=== PATIENT | female | born 1980 | race Caucasian/White ===

== ENCOUNTER → 2022-12-06 11:10 | Outpatient (BNVA) | payer MEDICARE, MEDICAID, SELFPAY | PROVIDERS: PCP Family Medicine; Visit Provider Internal Medicine Rheumatology | DX: M25.50 Pain in unspecified joint (principal); Z79.899 Other long term (current) drug therapy; M19.90 Unspecified osteoarthritis, unspecified site; M45.6 Ankylosing spondylitis lumbar region; Z11.59 Encounter for screening for other viral diseases; M47.892 Other spondylosis, cervical region; M17.11 Unilateral primary osteoarthritis, right knee; M54.89 Other dorsalgia; M76.61 Achilles tendinitis, right leg; M76.62 Achilles tendinitis, left leg; E06.3 Autoimmune thyroiditis; E03.8 Other specified hypothyroidism; Z11.1 Encounter for screening for respiratory tuberculosis; Z98.84 Bariatric surgery status | CPT/HCPCS: 36415; 72040; 72100; 72202; 73130; 73562; 73630; 80076; 82565; 85025; 85651; 86140; 86200; 86480; 86704; 86803; 86812; 87340; 99204 ==

== ENCOUNTER 2023-01-27 09:02 | Emergency (ER) | payer MEDICARE, MEDICAID, SELFPAY ==
[2023-01-27 09:07] VITALS: BP 117/80; PULSE 84; RESP 16; TEMP 36.5; O2SAT 100; BMI 39.3
--- NOTE | 2023-01-27 09:26 | ED_ITS ---
Documented by User: VIPIN Grace 01/27/23 14:52 HPI - Abdominal Pain General: Chief Complaint: Abdominal Pain Stated Complaint: right abd pain Time Seen by Provider: 01/27/23 09:15 History of Present Illness: Patient is a 43-year-old female who comes to the ED with abdominal pain. Patient has a past surgical history of cholecystectomy and hysterectomy. Symptoms started approximately 3 days ago. Abdominal pain was initially in the periumbilical region of abdomen and over the past 24 hours pain has moved to the right lower quadrant of the abdomen. She rates the pain currently a 7 out of 10 and describes it as a constant aching pain with some moments of sharp stabbing pain as well. Endorses having nausea and decreased appetite over the past c ouple days. This morning she tried to eat some breakfast and immediately threw it up. Denies any fevers, chest pain, shortness of breath, bladder or bowel symptoms. Associated Symptoms: Reports nausea and vomiting; Denies chills, constipation, diarrhea, dysuria, fever(s), hematochezia and hematuria Review of Systems Const: Denies: fever(s), chills or fatigue Eyes: Denies: change in vision or eye discomfort ENMT: Denies: throat pain, odynophagia, nasal discharge or nasal congestion Card: Denies: chest pain, palpitations, edema, swelling of feet/ankles, dyspnea on exertion or orthopnea Resp: Denies: dyspnea, productive cough or non-productive cough GI: Reports: abdominal pain, nausea and vomiting; Denies: diarrhea, constipation or hematochezia : Denies: flank pain, dysuria or hematuria Musc: Denies: neck pain, back pain or extremity swelling Skin/Breast: Denies: rash or new lesions Neuro: Denies: headache(s), numbness in extremities or weakness in extremities PFS ED PFSH: Medical History (Updated 01/27/23 @ 12:27 by Fred Cohn DO) Achilles tendinitis of both lower extremities Benign tumor of pituitary gland Enlarged heart GERD (gastroesophageal reflux disease) 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 Inflammatory back pain Migraines, neuralgic Ovarian cyst Polyarthralgia TIA (transient ischemic attack) Surgical History (Updated 12/06/22 @ 10:01 by Sameer Bettencourt MD) H/O gastric bypass H/O of anterior colporrhaphy with posterior H/O right heart catheterization History of bilateral tubal ligation History of cholecystectomy History of hysterectomy History of laparoscopic cholecystectomy x4 for ovarian cysts History of thyroidectomy Family History (Updated 12/06/22 @ 09:46 by Seble Schaffer LPN) Other Cancer Diabetes Family history of premature coronary artery disease Hypertension Rheumatoid arthritis Stroke Denies family history of Lupus Lung disease Social History (Updated 12/06/22 @ 09:23 by Seble Schaffer LPN) Smoking and tobacco status: former smoker Alcohol intake: never Physical Exam Const: COMMON NORMALS: patient oriented x3 and alert GENERAL APPEARANCE: cooperative HENMT: COMMON NORMALS: normocephalic HEAD & SCALP: normocephalic MOUTH: Normal oral and palatal mucosa present THROAT: posterior oropharynx normal and uvula midline Neck/C-Spine: COMMON NORMALS: supple GENERAL: Yes normal visual inspection Resp: COMMON NORMALS: normal respiratory effort, No retractions, No use of accessory muscles and clear to auscultation bilaterally AUSCULTATION: clear to auscultation bilaterally Cardio: COMMON NORMALS: regular rate, regular rhythm, S1 normal heart sound present, S2 normal heart sound present, No gallops present (Cardio), No clicks present (Cardio), No murmurs present (Cardio) and Peripheral pulses 2+ th roughout RATE: regular rate RHYTHM: regular rhythm HEART SOUNDS: S1 normal heart sound present and S2 normal heart sound present PERIPHERAL PULSES: Peripheral pulses 2+ throughout GI: COMMON NORMALS: Normal to inspection, nondistended, normoactive bowel sounds present, Soft to palpation and no masses PALPATION: Yes Soft to palpation and Yes Tenderness to palpation present (GI) Details: RLQ : COMMON NORMALS: Yes no CVA tenderness BLADDER/KIDNEY EXAM: Yes no CVA tenderness Back/Pelvis: COMMON NORMALS: no CVA tenderness Extremity: COMMON NORMALS: normal to inspection Neuro: COMMON NORMALS: patient oriented x3 SENSORIUM/ORIENTATION: Yes alert GAIT: Yes Normal gait present Skin: GENERAL SKIN EXAM: dry skin Course Vital Signs: Vital signs: Vital Signs Temperature 97.7 F 01/27/23 09:07 Pulse Rate 69 01/27/23 12:04 Respiratory Rate 16 01/27/23 12:04 Blood Pressure 143/82 01/27/23 12:04 Pulse Oximetry 93 01/27/23 12:04 Oxygen Delivery Me thod Room Air 01/27/23 12:04 MDM - Abdominal Pain Lab Data 01/27/23 09:56 01/27/23 09:56 Labs/Radiology: Radiology Impressions Abdomen/Pelvis CT 01/27/23 09:26 IMPRESSION: 1. Enlarged RIGHT hepatic lobe diffuse fatty infiltration liver. 2. Appendix is difficult to visualize but no evidence of acute appendicitis. 3. No hydronephrosis in either kidney. 4. Prior gastric bypass. Prior hysterectomy and cholecystectomy. Prior tubal ligation. 5. A few sigmoid diverticuli. No evidence of acute diverticulitis. 6. Patchy nodular opacity RIGHT lower lobe medially measuring 9 mm. Recommend [address] follow-up. 7. No other suspicious findings. Laboratory Results WBC 9.5 10^3/uL (4.0-10.0) 01/27/23 09:56 RBC 5.30 10^6/uL (4.1-5.3) 01/27/23 09:56 Hgb 15.2 g/dL (11.5-15.3) 01/27/23 09:56 Hct 47.6 % (37.0-47.0) H 01/27/23 09:56 MCV 89.8 fl (81-99) 01/27/23 09:56 MCH 28.7 pg (28.0-34.0) 01/27/23 09:56 MCHC 31.9 g/dL (30.0-36.0) 01/27/23 09:56 RDW 13.8 % (12.1-15.1) 01/27/23 09:56 Plt Count 337 10^3/cmm (130-400) 01/27/23 09:56 MPV 9.5 fL (7.4-10.4) 01/27/23 09:56 Neut % (Auto) 67.7 % 01/27/23 09:56 Lymph % (Auto) 22.4 % 01/27/23 09:56 [place] % (Auto) 7.4 % 01/27/23 09:56 Eos % (Auto) 1.6 % 01/27/23 09:56 Baso % (Auto) 0.6 % 01/27/23 09:56 Neut # (Auto) 6.41 10^3/uL (1.8-7.7) 01/27/23 09:56 Lymph # (Auto) 2.1 10^3/uL (0.8-4.8) 01/27/23 09:56 [place] # (Auto) 0.7 10^3/uL (0.2-0.9) 01/27/23 09:56 Eos # (Auto) 0.2 10^3/uL (0.0-0.8) 01/27/23 09:56 Baso # (Auto) 0.1 10^3/uL (0.0-0.1) 01/27/23 09:56 Nucleated RBC % (auto) 0 % 01/27/23 09:56 Nucleated RBCs # 0.0 /100WBC 01/27/23 09:56 Sodium 142 mmol/L (136-145) 01/27/23 09:56 Potassium 3.5 mmol/L (3.5-5.1) 01/27/23 09:56 Chloride 104 mmol/L (98-107) 01/27/23 09:56 Carbon Dioxide 27 mmol/L (22-29) 01/27/23 09:56 Anion Gap 14.5 (5-19) 01/27/23 09:56 BUN 11 mg/dL (6-20) 01/27/23 09:56 Creatinine 0.6 mg/dL (0.5-0.9) 01/27/23 09:56 GFR Calculation 110.2 mL/min (90-130) 01/27/23 09:56 Glucose 74 mg/dL (65-115) 01/27/23 09:56 Calculated Osmolality 292 mOsm/kg (285-295) 01/27/23 09:56 Calcium 9.1 mg/dL (8.5-10.5) 01/27/23 09:56 Total Bilirubin 0.5 mg/dL (0.15-1.2) 01/27/23 09:56 AST 14 U/L (0-32) 01/27/23 09:56 ALT 11 U/L (0-33) 01/27/23 09:56 Alkaline Phosphatase 63 U/L (35-105) 01/27/23 09:56 Total Protein 7.1 g/dL (6.6-8.7) 01/27/23 09:56 Albumin 4.3 g/dL (3.5-5.2) 01/27/23 09:56 Globulin 2.8 g/dL (1.3-4.6) 01/27/23 09:56 Lipase 31 U/L (13-60) 01/27/23 09:56 Urine Color Yellow (Yellow) 01/27/23 09:42 Urine Appearance Hazy (CLEAR) A 01/27/23 09:42 Urine pH 7 (5-7) 01/27/23 09:42 Ur Specific [place]anan 1.015 (1.005-1.030) 01/27/23 09:42 Urine Protein Neg (Negative) 01/27/23 09:42 Urine Glucose (UA) Norm (Normal) 01/27/23 09:42 Urine Ketones Negative (Negative) 01/27/23 09:42 Urine Blood Neg (Negative) 01/27/23 09:42 Urine Nitrate Negative (Negative) 01/27/23 09:42 Urine Bilirubin Neg (Negative) 01/27/23 09:42 Urine Urobilinogen Norm mg/dL (Negative) 01/27/23 09:42 Ur Leukocyte Esterase Negative (Negative) 01/27/23 09:42 Urine RBC 0-4 /hpf (0-2) H 01/27/23 09:42 Urine WBC 0-4 /hpf (0-5) H 01/27/23 09:42 Ur Squamous Epith Cells 10-15 /hpf (0-5) H 01/27/23 09:42 Amorphous Sediment Not Reportable 01/27/23 09:42 Urine Bacteria Trace /hpf (NONE) 01/27/23 09:42 Urine Mucus Trace /hpf 01/27/23 09:42 Discharge Plan Discharge Patient Disposition: Home Clinical Impression: Right sided abdominal pain Condition: Stable Prescriptions: New hydrocodone-acetaminophen 5-325 mg tablet 1 tab PO Q6H PRN (Reason: pain) Qty: 10 0RF ondansetron HCl 4 mg tablet 4 mg PO Q6H PRN (Reason: nausea and vomiting) Qty: 20 0RF No Action [place] 81 mg capsule 81 mg PO QAM hydrochlorothiazide 25 mg tablet 25 mg PO QAM levothyroxine [Tirosint] 150 mcg capsule 150 mcg PO QAM omeprazole magnesium [Prilosec OTC] 20 mg tablet,delayed release (DR/EC) 20 mg PO QAM prednisone 20 mg tablet See Rx Instructions PO .COMPLEX PRN (Reason: joint pain flare) Qty: 30 0RF Rx Instructions: take 2 tab daily for 7 days as needed for arthritis flare as needed phentermine 37.5 mg tablet 37.5 mg PO QAM bupropion HCl 150 mg tablet extended release 24 hr 150 mg PO QAM sulfasalazine 500 mg tablet 500 mg PO QAM Rx Instructions: give with food (meal/snack) Discharge Orders: Discharge ED (Routine); Ordered 01/27/23 Ordered By: Fred Cohn Referrals: Jean Chandler DO [Primary Care Provider] - Discharge Diet: Clear Liquid Discharge Activity: Increase activity as tolerated Patient Instructions: Abdominal Pain (ED), Opioid Safety, Pain Management Activity Restrictions/Additional Instructions: You are seen today for abdominal pain your labs and CT of the abdomen were negative. Recommend clear liquid diet for 24 to 48 hours and advance as tolerated you can use Zofran or hydrocodone as needed for pain return if you have worsening or changes symptoms Sign Out Sign Out Data: Patient Sign Out occurred on 01/27/23 at 09:57. Patient's care was discussed, and care was transferred from to Fred Cohn DO. Coding Level of Care Code ED Program Professional for Chg Fwd Documented by User: Fred Cohn DO 01/27/23 13:55 HPI - Abdominal Pain 2 General: Chief Complaint: Abdominal Pain Stated Complaint: right abd pain Time Seen by Provider: 01/27/23 09:15 History of Present Illness: Patient is a 43-year-old female who comes to the ED with abdominal pain. Patient has a past surgical history of cholecystectomy, gastric sleeve and hysterectomy. Symptoms started approximately 3 days ago. Abdominal pain was initially in the periumbilical region of abdomen and over the past 24 hours pain has moved to the right lower quadrant of the abdomen. She rates the pain c urrently a 7 out of 10 and describes it as a constant aching pain with some moments of sharp stabbing pain as well. Endorses having nausea and decreased appetite over the past couple days. This morning she tried to eat some breakfast and immediately threw it up. Denies any fevers, chest pain, shortness of breath, bladder or bowel symptoms. 43-year-old female who presents emergency room with abdominal pain. Previous history of cholecystectomy gastric sleeve hysterectomy symptoms began about 3 to 4 days ago she has poor appetite she has been very nauseous. Pain migrated to the right lower quadrant. Anytime she eats or drinks it makes it worse with motion or stepping or even riding in the car over on the head of bu it seemed to worsen significantly. She denies any diarrhea but has been very nauseous and threw up once this morning denies any hematemesis or coffee-ground emesis. 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 Inflammatory back pain Migraines, neuralgic Ovarian cyst Polyarthralgia TIA (transient ischemic attack) Surgical History (Updated 12/06/22 @ 10:01 by Sameer Bettencourt MD) H/O gastric bypass H/O of anterior colporrhaphy with posterior H/O right heart catheterization History of bilateral tubal ligation History of cholecystectomy History of hysterectomy History of laparoscopic cholecystectomy x4 for ovarian cysts History of thyroidectomy Family History (Updated 12/06/22 @ 09:46 by Seble Schaffer LPN) Other Cancer Diabetes Family history of premature coronary artery disease Hypertension Rheumatoid arthritis Stroke Denies family history of Lupus Lung disease Social History (Updated 12/06/22 @ 09:23 by Seble Schaffer LPN) Smoking and tobacco status: former smoker Alcohol intake: never Physical Exam Const: GENERAL APPEARANCE: cooperative and comfortable ORIENTATION/CONSCIOUSNESS: Yes awake, Yes oriented to person, Yes oriented to place and Yes oriented to time HENMT: COMMON NORMALS: normocephalic, atraumatic and hearing grossly normal bilaterally HEAD & SCALP: normocephalic and atraumatic Resp: COMMON NORMALS: normal respiratory effort, No retractions, No use of accessory muscles and clear to auscultation bilaterally AUSCULTATION: clear to auscultation bilaterally Cardio: COMMON NORMALS: regular rate, regular rhythm and No murmurs present ( Cardio) RATE: regular rate RHYTHM: regular rhythm GI: COMMON NORMALS: No hepatosplenomegaly present AUSCULTATION: Yes normoactive bowel sounds PALPATION: Yes Tenderness to palpation present (GI) Details: RLQ, No Guarding due to palpation present (GI) and Yes No hepatosplenomegaly present Extremity: COMMON NORMALS: normal to inspection, capillary refill normal, no clubbing, cyanosis or edema, no calf tenderness and no pedal edema Neuro: SENSORIUM/ORIENTATION: Yes oriented to person, Yes oriented to place and Yes oriented to time Skin: COMMON NORMALS: no rashes or lesions noted GENERAL SKIN EXAM: no rashes or lesions noted Course Vital Signs: Vital signs: Vital Signs Temperature 97.7 F 01/27/23 09:07 Pulse Rate 69 01/27/23 12:04 Respiratory Rate 16 01/27/23 12:04 Blood Pressure 143/82 01/27/23 12:04 Pulse Oximetry 93 01/27/23 12:04 Oxygen Delivery Me thod Room Air 01/27/23 12:04 MDM - Abdominal Pain Medical Decision Making Labs and imaging reviewed no leukocytosis CT of the abdomen did not show any acute pathology no appendicitis. UA negative. Discharge patient home with antiemetics pain medications clear liquid diet 24 to 48 hours advance as tolerated any worsening change symptoms return to the emergency room reviewed all findings with her. Medical Records I reviewed the patient's medical records. Lab Data I reviewed the patient's lab results. 01/27/23 09:56 01/27/23 09:56 Labs/Radiology: Radiology Impressions Abdomen/Pelvis CT 01/27/23 09:26 IMPRESSION: 1. Enlarged RIGHT hepatic lobe diffuse fatty infiltration liver. 2. Appendix is difficult to visualize but no evidence of acute appendicitis. 3. No hydronephrosis in either kidney. 4. Prior gastric bypass. Prior hysterectomy and cholecystectomy. Prior tubal ligation. 5. A few sigmoid diverticuli. No evidence of acute diverticulitis. 6. Patchy nodular opacity RIGHT lower lobe medially measuring 9 mm. Recommend [address] follow-up. 7. No other suspicious findings. Laboratory Results WBC 9.5 10^3/uL (4.0-10.0) 01/27/23 09:56 RBC 5.30 10^6/uL (4.1-5.3) 01/27/23 09:56 Hgb 15.2 g/dL (11.5-15.3) 01/27/23 09:56 Hct 47.6 % (37.0-47.0) H 01/27/23 09:56 MCV 89.8 fl (81-99) 01/27/23 09:56 MCH 28.7 pg (28.0-34.0) 01/27/23 09:56 MCHC 31.9 g/dL (30.0-36.0) 01/27/23 09:56 RDW 13.8 % (12.1-15.1) 01/27/23 09:56 Plt Count 337 10^3/cmm (130-400) 01/27/23 09:56 MPV 9.5 fL (7.4-10.4) 01/27/23 09:56 Neut % (Auto) 67.7 % 01/27/23 09:56 Lymph % (Auto) 22.4 % 01/27/23 09:56 [place] % (Auto) 7.4 % 01/27/23 09:56 Eos % (Auto) 1.6 % 01/27/23 09:56 Baso % (Auto) 0.6 % 01/27/23 09:56 Neut # (Auto) 6.41 10^3/uL (1.8-7.7) 01/27/23 09:56 Lymph # (Auto) 2.1 10^3/uL (0.8-4.8) 01/27/23 09:56 [place] # (Auto) 0.7 10^3/uL (0.2-0.9) 01/27/23 09:56 Eos # (Auto) 0.2 10^3/uL (0.0-0.8) 01/27/23 09:56 Baso # (Auto) 0.1 10^3/uL (0.0-0.1) 01/27/23 09:56 Nucleated RBC % (auto) 0 % 01/27/23 09:56 Nucleated RBCs # 0.0 /100WBC 01/27/23 09:56 Sodium 142 mmol/L (136-145) 01/27/23 09:56 Potassium 3.5 mmol/L (3.5-5.1) 01/27/23 09:56 Chloride 104 mmol/L (98-107) 01/27/23 09:56 Carbon Dioxide 27 mmol/L (22-29) 01/27/23 09:56 Anion Gap 14.5 (5-19) 01/27/23 09:56 BUN 11 mg/dL (6-20) 01/27/23 09:56 Creatinine 0.6 mg/dL (0.5-0.9) 01/27/23 09:56 GFR Calculation 110.2 mL/min (90-130) 01/27/23 09:56 Glucose 74 mg/dL (65-115) 01/27/23 09:56 Calculated Osmolality 292 mOsm/kg (285-295) 01/27/23 09:56 Calcium 9.1 mg/dL (8.5-10.5) 01/27/23 09:56 Total Bilirubin 0.5 mg/dL (0.15-1.2) 01/27/23 09:56 AST 14 U/L (0-32) 01/27/23 09:56 ALT 11 U/L (0-33) 01/27/23 09:56 Alkaline Phosphatase 63 U/L (35-105) 01/27/23 09:56 Total Protein 7.1 g/dL (6.6-8.7) 01/27/23 09:56 Albumin 4.3 g/dL (3.5-5.2) 01/27/23 09:56 Globulin 2.8 g/dL (1.3-4.6) 01/27/23 09:56 Lipase 31 U/L (13-60) 01/27/23 09:56 Urine Color Yellow (Yellow) 01/27/23 09:42 Urine Appearance Hazy (CLEAR) A 01/27/23 09:42 Urine pH 7 (5-7) 01/27/23 09:42 Ur Specific [place] 1.015 (1.005-1.030) 01/27/23 09:42 Urine Protein Neg (Negative) 01/27/23 09:42 Urine Glucose (UA) Norm (Normal) 01/27/23 09:42 Urine Ketones Negative (Negative) 01/27/23 09:42 Urine Blood Neg (Negative) 01/27/23 09:42 Urine Nitrate Negative (Negative) 01/27/23 09:42 Urine Bilirubin Neg (Negative) 01/27/23 09:42 Urine Urobilinogen Norm mg/dL (Negative) 01/27/23 09:42 Ur Leukocyte Esterase Negative (Negative) 01/27/23 09:42 Urine RBC 0-4 /hpf (0-2) H 01/27/23 09:42 Urine WBC 0-4 /hpf (0-5) H 01/27/23 09:42 Ur Squamous Epith Cells 10-15 /hpf (0-5) H 01/27/23 09:42 Amorphous Sediment Not Reportable 01/27/23 09:42 Urine Bacteria Trace /hpf (NONE) 01/27/23 09:42 Urine Mucus Trace /hpf 01/27/23 09:42 Discharge Plan Discharge Patient Disposition: Home Clinical Impression: Right sided abdominal pain Condition: Stable Prescriptions: New hydrocodone-acetaminophen 5-325 mg tablet 1 tab PO Q6H PRN (Reason: pain) Qty: 10 0RF ondansetron HCl 4 mg tablet 4 mg PO Q6H PRN (Reason: nausea and vomiting) Qty: 20 0RF No Action [place] 81 mg capsule 81 mg PO QAM hydrochlorothiazide 25 mg tablet 25 mg PO QAM levothyroxine [Tirosint] 150 mcg capsule 150 mcg PO QAM omeprazole magnesium [Prilosec OTC] 20 mg tablet,delayed release (DR/EC) 20 mg PO QAM prednisone 20 mg tablet See Rx Instructions PO .COMPLEX PRN (Reason: joint pain flare) Qty: 30 0RF Rx Instructions: take 2 tab daily for 7 days as needed for arthritis flare as needed phentermine 37.5 mg tablet 37.5 mg PO QAM bupropion HCl 150 mg tablet extended release 24 hr 150 mg PO QAM sulfasalazine 500 mg tablet 500 mg PO QAM Rx Instructions: give with food (meal/snack) Discharge Orders: Discharge ED (Routine); Ordered 01/27/23 Ordered By: Fred Cohn Referrals: Jean Chandler DO [Primary Care Provider] - Discharge Diet: Clear Liquid Discharge Activity: Increase activity as tolerated Patient Instructions: Abdominal Pain (ED), Opioid Safety, Pain Management Activity Restrictions/Additional Instructions: You are seen today for abdominal pain your labs and CT of the abdomen were negative. Recommend clear liquid diet for 24 to 48 hours and advance as tolerated you can use Zofran or hydrocodone as needed for pain return if you have worsening or changes symptoms Sign Out Sign Out Data: Patient Sign Out occurred on 01/27/23 at 09:57. Patient's care was discussed, and care was transferred from to Fred Cohn DO. Coding Level of Care Code ED Program Professional for Wade Quiñones
--- NOTE | 2023-01-27 09:26 | CT_ITS ---
WS: [id number] CT ABDOMEN PELVIS TECHNIQUE: Contrast-enhanced CT of the abdomen and pelvis with coronal and sagittal reformatted image s. CLINICAL INFORMATION: RLQ abdominal tenderness, n/v COMPARISON: None. DLP: 877.[address] scans at [facility] use at least one of these dose optimization techniques: automated e xposure control; mA and/or kV adjustment per patient size (includes targeted exams where dose is matc hed to clinical indication); or iterative reconstruction. FINDINGS: Prior hysterectomy and cholecystectomy. Prior gastric bypass. Tubal ligation clips. Appendix is not w ell visualized but no evidence of acute appendicitis. No fluid collections the RIGHT lower quadrant. Normal cecum. A few sigmoid diverticuli. No evidence of acute diverticulitis.Normal bladder. Lung bases are well ae rated. Patchy nodular opacity RIGHT lower lobe medially measuring 9 mm. Large RIGHT hepatic lobe. Dif fuse fatty infiltration liver. Normal portal vein and splenic vein. Normal pancreas. Normal spleen. Adrenal glands are normal. Normal renal parenchymal enhancement. No hydronephrosis. Celiac and SMA ar e patent. Normal caliber abdominal aorta. Chronic compression with anterior wedging at T12. CT/CT abdomen pelvis w con* [id number] IMPRESSION: 1. Enlarged RIGHT hepatic lobe diffuse fatty infiltration liver. 2. Appendix is difficult to visualize but no evidence of acute appendicitis. 3. No hydronephrosis in either kidney. 4. Prior gastric bypass. Prior hysterectomy and cholecystectomy. Prior tubal l igation. 5. A few sigmoid diverticuli. No evidence of acute diverticulitis. 6. Patchy nodular opacity RIGHT lower lobe medially measuring 9 mm. Recommend [address] follow-up. 7. No other suspicious findings.
[2023-01-27] MEDS: sodium chloride 0.9% 1,000 ML 999 ML IV (09:53)
--- NOTE | 2023-01-27 09:53 | PC.PHAR ---
pt states she takes care of her own medications-pt states she takes sulfasalazine 500mg qam ext shows last filled 12/27/22 30d/s 500mg bid-pt states she uses medical marijuana-notes are made in the pharmacy comments
[2023-01-27] MEDS: morphine 4 mg/mL SDV 1 mL IVP (09:55)
[2023-01-27] MEDS: ondansetron 2 mg/ML SDV 2 mL 4 MG IVP (09:55)
[2023-01-27 09:59] VITALS: BP 157/98; PULSE 73; RESP 16; O2SAT 100
[2023-01-27 10:18] LABS: Basophils # 0.1 10^3/uL (0.0-0.1); Basophils % 0.6 %; Eosinophils # 0.2 10^3/uL (0.0-0.8); Eosinophils % 1.6 %; Hematocrit 47.6 % (37.0-47.0); Hemoglobin 15.2 g/dL (11.5-15.3); Lymphocytes # 2.1 10^3/uL (0.8-4.8); Lymphocytes % 22.4 %; Mean Corpuscular HGB Conc 31.9 g/dL (30.0-36.0); Mean Corpuscular Hemoglobin 28.7 pg (28.0-34.0); Mean Corpuscular Volume 89.8 fl (81-99); Mean Platelet Volume 9.5 fL (7.4-10.4); Monocytes # 0.7 10^3/uL (0.2-0.9); Monocytes % 7.4 %; Neutrophils # 6.41 10^3/uL (1.8-7.7); Neutrophils % 67.7 %; Nucleated Red Blood Cells % 0 %; Platelet Count 337 10^3/cmm (130-400); Red Cell Distribution Width 13.8 % (12.1-15.1); White Blood Count 9.5 10^3/uL (4.0-10.0)
[2023-01-27] MEDS: iohexol 350 mg/mL 500 mL Btl (per mL) IV (10:20)
[2023-01-27 10:28] LABS: Alanine Aminotransferase 11 U/L (0-33); Albumin Level 4.3 g/dL (3.5-5.2); Alkaline Phosphatase 63 U/L (35-105); Anion Gap 14.5 (5-19); Aspartate Amino Transferase 14 U/L (0-32); Blood Urea Nitrogen 11 mg/dL (6-20); Calcium 9.1 mg/dL (8.5-10.5); Carbon Dioxide 27 mmol/L (22-29); Chloride 104 mmol/L (98-107); Creatinine Clr Calc Pharmacy 139.7732; Globulin 2.8 g/dL (1.3-4.6); Glomerular Filtration Rate 110.2 mL/min (90-130); Glucose 74 mg/dL (65-115); Lipase 31 U/L (13-60); Osmolality Calculated 292 mOsm/kg (285-295); Potassium 3.5 mmol/L (3.5-5.1); Sodium 142 mmol/L (136-145); Total Bilirubin 0.5 mg/dL (0.15-1.2); Total Protein 7.1 g/dL (6.6-8.7)
[2023-01-27 10:54] LABS: Add Urine Microscopic? YES; Bilirubin Urine Neg (Negative); Blood Urine Neg (Negative); Glucose Urine UA Norm (Normal); Ketones Urine Negative (Negative); Leukocyte Esterase Urine Negative (Negative); Nitrate Urine Negative (Negative); Protein Urine Neg (Negative); Specific Gravity, Urine 1.015 (1.005-1.030); Urine Appearance Hazy (CLEAR); Urine Color Yellow (Yellow); Urobilinogen Urine Norm (Negative); pH Urine 7 (5-7)
[2023-01-27 10:55] LABS: Add Urine Culture? No; Bacteria Urine TRACE /hpf; Mucus Urine TRACE /hpf; RBC Urine 0-4 /hpf (0-2); WBC Urine 0-4 /hpf (0-5)
[2023-01-27 11:02] VITALS: BP 141/83; PULSE 82; RESP 15; O2SAT 97
[2023-01-27 12:04] VITALS: BP 143/82; PULSE 69; RESP 16; O2SAT 93
== END 2023-01-27 12:59 | disposition home or self-care (01) ==
PROVIDERS: Physician Assistant; Emergency Provider Family Medicine; PCP Family Medicine
DX: R10.9 Unspecified abdominal pain (principal)
CPT/HCPCS: 74177; 80053; 81001; 83690; 85025; 96361; 96374; 96375; 99285; J2270; J2405; J7030; Q9967

== ENCOUNTER → 2023-01-30 13:10 | Outpatient (BNVA) | payer MEDICARE, MEDICAID, SELFPAY | PROVIDERS: PCP Family Medicine; Visit Provider Internal Medicine Rheumatology | DX: M25.50 Pain in unspecified joint (principal); M54.89 Other dorsalgia; M76.61 Achilles tendinitis, right leg; M76.62 Achilles tendinitis, left leg; E03.8 Other specified hypothyroidism; E06.3 Autoimmune thyroiditis; Z79.899 Other long term (current) drug therapy; R76.8 Other specified abnormal immunological findings in serum | CPT/HCPCS: 99214 ==

== ENCOUNTER → 2023-06-19 10:20 | Outpatient (BNVA) | payer MEDICARE, MEDICAID, SELFPAY | PROVIDERS: PCP Family Medicine; Visit Provider Internal Medicine Rheumatology | DX: Z79.899 Other long term (current) drug therapy (principal); E03.8 Other specified hypothyroidism; E06.3 Autoimmune thyroiditis; M54.89 Other dorsalgia; M19.90 Unspecified osteoarthritis, unspecified site; R76.8 Other specified abnormal immunological findings in serum; M06.041 Rheumatoid arthritis without rheumatoid factor, right hand; M06.042 Rheumatoid arthritis without rheumatoid factor, left hand | CPT/HCPCS: 99214 ==

== ENCOUNTER → 2023-06-22 07:51 | Outpatient (BNVA) | payer MEDICARE, MEDICAID, SELFPAY | PROVIDERS: PCP Family Medicine; Visit Provider Obstetrics & Gynecology | DX: N81.10 Cystocele, unspecified (principal); Z90.710 Acquired absence of both cervix and uterus | CPT/HCPCS: 76830 ==

== ENCOUNTER → 2023-09-11 10:49 | Outpatient (BNVA) | payer MEDICARE, MEDICAID, SELFPAY | PROVIDERS: PCP Family Medicine; Visit Provider Internal Medicine Rheumatology | DX: M54.2 Cervicalgia (principal); M06.041 Rheumatoid arthritis without rheumatoid factor, right hand; M06.042 Rheumatoid arthritis without rheumatoid factor, left hand; Z79.899 Other long term (current) drug therapy; M19.90 Unspecified osteoarthritis, unspecified site; R76.8 Other specified abnormal immunological findings in serum | CPT/HCPCS: 36415; 80076; 82565; 85025; 86140; 99204 ==

== ENCOUNTER 2024-01-02 09:06 | Day surgery (SDC) | payer OTHER, MEDICAID, SELFPAY ==
--- NOTE | 2023-12-29 09:01 | P.ANESASSM_ITS ---
Pre-Anesthetic Assessment Height/Weight: Height 1.6 m Preop Diagnosis: pelvic pain Operation Date: 01/02/24 07:00 Proposed Procedures p Diagnostic laparoscopy 49370 R10.2, G89.29](Not Applicable) - Deondre Hare MD Familial anesthetic complications: took awhile to wake up Social No alcohol and No tobacco marijuana Exam alert, oriented x 3, clear to auscultation bilaterally and regular rate & rhythm Airway Mallampati: Class III Dentition: other (bridges) GI Gastroesophageal Reflux Disease Metabolic Thyroid Disease [facility] [place] Fibromyalgia Anesthetic Plan ASA status: 3 Anesthesia: General Risk of > 500 ml blood loss (7ml/kg in children): No Medications/Allergies Home Medications Medication Instructions Recorded Confirmed Last Taken Type hydrochlorothiazide 25 mg tablet 25 mg PO QAM PRN Edema 12/05/22 12/29/23 12/22/23 History levothyroxine 150 mcg capsule 150 mcg PO QAM 12/05/22 12/29/23 12/22/23 History (Tirosint) bupropion HCl 150 mg 24 hr tablet, 150 mg PO QAM 01/27/23 12/29/23 12/29/23 History extended release phentermine 37.5 mg tablet 37.5 mg PO QAM 01/27/23 12/29/23 12/18/23 History fluticasone propionate 50 1 spray intranasal DAILY PRN 07/28/23 12/29/23 12/22/23 Rx mcg/actuation nasal allergy symptoms #16 grams spray,suspension folic acid 1 mg tablet 1 mg PO DAILY #30 tabs 09/11/23 12/29/23 12/22/23 Rx gabapentin 300 mg capsule 300 mg PO .HS #30 caps 09/11/23 12/29/23 12/22/23 Rx methotrexate sodium 25 mg/mL 25 mg SUBCUT .Q7days #10 mL 09/11/23 12/29/23 12/22/23 Rx injection solution prednisone 10 mg tablet See Rx Instructions PO DAILY joint 09/11/23 12/29/23 11/30/23 Rx pain #90 tabs syringe with needle 1 mL 25 gauge #50 ea 09/12/23 12/25/23 Unknown Rx x 5/8 (Monoject TB Safety Syringe) ibuprofen 800 mg tablet 800 mg PO TID PRN Pain 10/27/23 12/29/23 12/22/23 History omeprazole magnesium 20 mg 20 mg PO QAM PRN reflux 10/27/23 12/29/23 12/08/23 History tablet,delayed release (Prilosec OTC) Allergies Allergy/AdvReac Type Severity Reaction Status Date / Time prochlorperazine Allergy ALGY-Rash Verified 12/25/23 07:52 [From Compazine] sulfasalazine AdvReac Intermediate nausea, Verified 12/25/23 07:52 gastric and anxiety [facility] Anesthesia Medical History Seronegative rheumatoid arthritis of both hands Positive BENOIT (antinuclear antibody) High risk medication use Achilles tendinitis of both lower extremities Inflammatory back pain Polyarthralgia 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 Benign tumor of pituitary gland Enlarged heart Migraines, neuralgic TIA (transient ischemic attack) GERD (gastroesophageal reflux disease) Ovarian cyst Surgical History History of thyroidectomy History of hysterectomy History of bilateral tubal ligation H/O of anterior colporrhaphy with posterior History of laparoscopic cholecystectomy x4 for ovarian cysts History of cholecystectomy H/O gastric bypass H/O right heart catheterization Family History Other Cancer Diabetes Family history of premature coronary artery disease Hypertension Rheumatoid arthritis Stroke Denies family history of Lupus Lung disease Social History Smoking and tobacco/nicotine status: former use of tobacco/nicotine Alcohol intake: never Data Anesthesia Cardiac Studies: No Data to Display
[2023-12-29 12:18] LABS: Add Urine Microscopic? NO; Charge for UA Resulting for Rev
[2023-12-29 12:22] LABS: Basophils % 0.5 %; Eosinophils # 0.2 10^3/uL (0.0-0.8); Eosinophils % 2.5 %; Hematocrit 43.1 % (36-47); Lymphocytes # 2.1 10^3/uL (0.8-4.8); Mean Corpuscular HGB Conc 31.8 g/dL (30-55); Mean Corpuscular Hemoglobin 28.9 pg (27-33); Mean Corpuscular Volume 90.9 fl (85-98); Mean Platelet Volume 10.4 fL (7.4-10.4); Monocytes # 0.7 10^3/uL (0.2-0.9); Neutrophils # 4.31 10^3/uL (1.8-7.7); Neutrophils % 58.9 %; Nucleated Red Blood Cells % 0 %; Platelet Count 294 10^3/cmm (157-399); Red Blood Count 4.74 10^6/uL (3.85-5.65); Red Cell Distribution Width 13.3 % (12.1-15.1); White Blood Count 7.32 10^3/uL (3.29-11.43)
[2023-12-29 12:26] LABS: OR HCG Qualitative Urine Negative (Negative)
[2023-12-29 12:39] LABS: Alanine Aminotransferase 10 U/L (0-33); Albumin Level 3.9 g/dL (3.5-5.2); Alkaline Phosphatase 57 U/L (35-105); Anion Gap 12.9 (5-19); Aspartate Amino Transferase 15 U/L (0-32); Blood Urea Nitrogen 15 mg/dL (6-20); Calcium 8.9 mg/dL (8.5-10.5); Carbon Dioxide 29 mmol/L (22-29); Chloride 106 mmol/L (98-107); Globulin 2.8 g/dL (1.3-4.6); Glomerular Filtration Rate 110.2 mL/min (90-130); Glucose 47 mg/dL (65-115); Osmolality Calculated 296 mOsm/kg (285-295); Potassium 3.9 mmol/L (3.5-5.1); Sodium 144 mmol/L (136-145); Total Bilirubin 0.5 mg/dL (0.15-1.2); Total Protein 6.7 g/dL (6.6-8.7)
[2023-12-29 13:05] LABS: Bilirubin Urine Neg (Negative); Blood Urine Neg (Negative); Glucose Urine UA Norm (Normal); Ketones Urine Negative (Negative); Leukocyte Esterase Urine Negative (Negative); Nitrate Urine Negative (Negative); Protein Urine Neg (Negative); Specific Gravity, Urine 1.015 (1.005-1.030); Sulfosalicylic Acid Urine Negative (Negative); Urine Appearance Clear (CLEAR); Urine Color Yellow (Yellow); Urobilinogen Urine Neg (Negative); pH Urine 8 (5-7)
[2024-01-02] VITALS (11 sets, daily range): BP systolic 122–185; BP diastolic 67–106; PULSE 56–67; RESP 14–18; TEMP 36.3–36.9; O2SAT 98–100; BMI 39.3
[2024-01-02] MEDS: scopolamine 1.5 Patch 1 PATCH TRANSDERMA (10:03)
[2024-01-02] MEDS: sodium chloride 0.9% 1,000 ML 30 ML IV (10:03)
--- NOTE | 2024-01-02 10:23 | P.ANESUD_ITS ---
Pre-Anesthetic Update Pre-Anesthetic Assessment: Date of Surgery/Procedure: 01/02/24 Preop Elaine gnosis: pelvic pain Proposed Procedure: Operation Date: 01/02/24 11:30 Proposed Procedures p Diagnostic laparoscopy 57312 R10.2, G89.29](Not Applicable) - Deondre Hare MD Any changes to Pre-Anesthetic Assessment?: No Last Intake: Intake Last Liquid Date 01/01/24 Last Liquid Time 22:00 Last Solid Date 01/01/24 Last Solid Time 22:00 Vitals: Temperature 98.5 F 01/02/24 09:53 Temperature Source Temporal Artery S can 01/02/24 09:53 Pulse Rate 67 01/02/24 09:53 Pulse Rhythm Regular 01/02/24 09:54 Respiratory Rate 17 01/02/24 09:53 Blood Pressure 156/106 01/02/24 09:53 Blood Pressure Juliane n 122 01/02/24 09:53 Pulse Oximetry 100 01/02/24 09:53 Oxygen Delivery Me thod Room Air 01/02/24 09:54 Exam: Pre-Anes Outpt Exam: alert, oriented x 3, clear to auscultation bilaterally and regular rate & rhythm Cardiac Studies: No Data to Display
[2024-01-02] MEDS: midazolam 1 mg/mL INJ 2 mL 2 MG IVP (11:05)
--- NOTE | 2024-01-02 11:31 | W.PM.OPSUD ---
Surgery/Procedure H&P Update DATE OF PROCEDURE: January 02, 2024 DATE H&P PERFORMED: 12/25/23 H&P UPDATE INFORMATION: I have reviewed H&P completed within last 30 days, I have examined patient prior to procedure and No changes to prior documentation PREOP DIAGNOSIS: pelvic pain PLANNED PROCEDURE: Operation Date: 01/02/24 11:30 Proposed Procedures p Diagnostic laparoscopy 91661 R10.2, G89.29](Not Applicable) - Deondre Hare MD
[2024-01-02] MEDS: ceFAZolin 2,000 MG in sodium chloride 0.9% (plus) 50 ML 100 MG IV (11:52)
[2024-01-02] MEDS: BUPivacaine 0.5% INJ 10 mL INJECTION (12:27)
--- NOTE | 2024-01-02 12:49 | P.OP_ITS ---
Operative Report Date of procedure: January 02, 2024 Pre-op diagnosis: Chronic pelvic pain Post-op findings: Pelvic adhesions Foreign body: Hulka clip Procedure done: Diagnostic laparoscopy Lysis of adhesion Extraction foreign body: Hulka clips Surgeon: Deondre Hare MD Estimated blood loss (mL): 5 IV fluids (mL): 600 Urine output (mL): 50 Complications: None Procedure: After informed consent, the patient was taken to the operating room where general anesthesia was administered. The patient was examined under anesthesia and found to have a normal uterus with normal adnexa. She was placed in the dorsal lithotomy position and prepped and draped in sterile fashion. Pre- Procedure Time-Out verifying the correct patient identity, correct procedure verified with consent, correct site and side, correct patient position, availability of correct implants and any special equipment or requirements was performed and acknowledge by the OR team. A speculum was placed in the vagina, and a sponge stick was placed in the vagina. The speculum was removed from the vagina. An intraumbilical incision was made with a scalpel. While tenting up on the abdomen, a Verres needle with sleeve was admitted into the intra-abdominal cavity. A saline drop test was performed and noted to be within normal limits. Pneumoperitoneum was attained with 4 liters of carbon dioxide. The Verres needle was removed. A 5 mm trocar and sleeve were admitted into the abdomen and laparoscopic confirmation of location was achieved, A second incision was made 3 cm above the symphysis pubis, and a 5 mm trocar and sleeve were admitted into the abdomen under direct, laparoscopic visualization without complication. A survey revealed normal abdominal anatomy but pelvic survey shows omental adhesions to anterior pelvic wall. Also hold current clip was noted on the anterior apelvic wall in peritoneal fold superior to the bladder. A 5 mm blunt probe was advanced through the second trocar sleeve, and light manipulation of ovaries. With the LigaSure blunt tipped laparoscopic instrument the adhesions were lysed and that hulka clipd was extracted. The Carbon dioxide was allowed to escape from the abdomen. The instruments were removed, and skin closed with 3-0 Vicryl and Dermabond. The instruments were removed from the vagina, and excellent hemostasis was noted. The patient tolerated the procedure well, and sponge, lap and needle count were correct times two. The patient taken to the recovery room in good condition.
[2024-01-02] MEDS: fentaNYL 50 mcg/mL INJ 2mL IVP (13:03)
[2024-01-02] MEDS: HYDROcodone-acetaminophen 5-325 mg Tablet 1 TAB PO (13:53)
--- NOTE | 2024-01-02 14:35 | ANE.PACU2 ---
Inpatient post-anesthesia follow up: Airway intact: Yes Vital signs: Temperature 97.6 F Pulse Rate 60 Respiratory Rate 17 Blood Pressure 122/67 Pulse Oximetry 99 Oxygen Delivery Me thod Room Air Oxygen Flow Rate 8 Fraction of Inspir ed Oxygen Hydration adequate: Yes Nausea and vomiting: No Pain level: 1 Mental status: Baseline
== END 2024-01-02 14:35 | disposition home or self-care (01) ==
PROVIDERS: PCP Family Medicine; Visit Provider Obstetrics & Gynecology
PROC: (CPT 49320; principal; 2024-01-02 11:30)
PROC: (CPT 49999; 2024-01-02 11:30)
DX: T18.2XXA Foreign body in stomach, initial encounter (principal); N73.6 Female pelvic peritoneal adhesions (postinfective); K21.9 Gastro-esophageal reflux disease without esophagitis; M79.7 Fibromyalgia; E03.9 Hypothyroidism, unspecified; Z86.73 Personal history of transient ischemic attack (TIA), and cerebral infarction without residual deficits; Z98.84 Bariatric surgery status; Z87.891 Personal history of nicotine dependence
CPT/HCPCS: 49999; 36415; 80053; 81003; 84703; 85025; 86850; 86900; 88300; J0690; J1100; J1885; J2250; J2405; J2704; J3010; J3490; J7030

== ENCOUNTER 2024-03-14 10:30 | Outpatient (CLI) | payer OTHER, MEDICAID, SELFPAY ==
[2024-03-14 11:04] LABS: Basophils % 0.6 %; Eosinophils # 0.1 10^3/uL (0.0-0.8); Eosinophils % 2.1 %; Hematocrit 41.4 % (36-47); Lymphocytes # 2.2 10^3/uL (0.8-4.8); Lymphocytes % 33.4 %; Mean Corpuscular HGB Conc 32.4 g/dL (30-55); Mean Corpuscular Hemoglobin 29.1 pg (27-33); Mean Platelet Volume 10.1 fL (7.4-10.4); Monocytes # 0.5 10^3/uL (0.2-0.9); Monocytes % 6.9 %; Neutrophils # 3.79 10^3/uL (1.8-7.7); Neutrophils % 56.9 %; Nucleated Red Blood Cells % 0 %; Platelet Count 278 10^3/cmm (157-399); Red Cell Distribution Width 13.6 % (12.1-15.1); White Blood Count 6.67 10^3/uL (3.29-11.43)
[2024-03-14 11:19] LABS: Alanine Aminotransferase 10 U/L (0-33); Albumin Level 3.8 g/dL (3.5-5.2); Alkaline Phosphatase 55 U/L (35-105); Aspartate Amino Transferase 14 U/L (0-32); Globulin 2.5 g/dL (1.3-4.6); Glomerular Filtration Rate 109.6 mL/min (90-130); Total Bilirubin 0.4 mg/dL (0.15-1.2); Total Protein 6.3 g/dL (6.6-8.7)
== END 2024-03-14 10:31 | disposition home or self-care (01) ==
LOC: LAB 10:31
PROVIDERS: PCP Family Medicine; Visit Provider Internal Medicine Rheumatology
DX: M06.041 Rheumatoid arthritis without rheumatoid factor, right hand (principal); M06.042 Rheumatoid arthritis without rheumatoid factor, left hand; Z79.899 Other long term (current) drug therapy
CPT/HCPCS: 36415; 80076; 82565; 85025; 86140

== ENCOUNTER → 2024-06-28 08:19 | Outpatient (BNVA) | payer MEDICAID, SELFPAY | PROVIDERS: PCP Family Medicine; Visit Provider Internal Medicine | DX: E07.9 Disorder of thyroid, unspecified (principal); E03.9 Hypothyroidism, unspecified; D35.2 Benign neoplasm of pituitary gland; E55.9 Vitamin D deficiency, unspecified; M54.2 Cervicalgia; Z98.84 Bariatric surgery status; R51.9 Headache, unspecified; R94.6 Abnormal results of thyroid function studies; Z79.890 Hormone replacement therapy | CPT/HCPCS: 36415; 82306; 82533; 84146; 84305; 84439; 84443; 99204 ==

== ENCOUNTER 2024-07-05 08:08 | Outpatient (CLI) | payer MEDICAID, OTHER, SELFPAY ==
[2024-07-05 09:12] LABS: Cortisol Random 6.12 ug/dL (2.47-19.5); Thyroid Stimulating Hormone 0.91 uIU/mL (0.27-4.20)
[2024-07-05 09:51] LABS: 25 Hydroxy Vitamin D 28 ng/mL (30-100); Prolactin 14.21 ng/mL (4.8-23.3)
== END 2024-07-05 08:09 | disposition home or self-care (01) ==
LOC: LAB 08:15
PROVIDERS: PCP Family Medicine; Visit Provider Internal Medicine
DX: E03.8 Other specified hypothyroidism (principal); E06.3 Autoimmune thyroiditis; D35.2 Benign neoplasm of pituitary gland; E03.9 Hypothyroidism, unspecified; E55.9 Vitamin D deficiency, unspecified; Z98.84 Bariatric surgery status
CPT/HCPCS: 36415; 82306; 82533; 84146; 84305; 84439; 84443

== ENCOUNTER → 2024-07-17 12:23 | Outpatient (BNVA) | payer OTHER, MEDICAID, SELFPAY | PROVIDERS: PCP Family Medicine; Visit Provider Internal Medicine Rheumatology | DX: M06.041 Rheumatoid arthritis without rheumatoid factor, right hand (principal); M06.042 Rheumatoid arthritis without rheumatoid factor, left hand; Z79.899 Other long term (current) drug therapy | CPT/HCPCS: 36415; 80076; 82565; 85025; 85651; 86140 ==

== ENCOUNTER 2024-07-26 10:56 | Outpatient (CLI) | payer MEDICARE, MEDICAID, SELFPAY ==
--- NOTE | 2024-07-26 11:45 | MR_ITS ---
WS: [id number] MRI BRAIN WITHOUT AND WITH CONTRAST, ATTENTION DIRECTED TO THE PITUITARY GLAND HISTORY: Pituitary Adenoma COMPARISON: None available. TECHNIQUE: Diffusion-weighted imaging, axial T2 sequence, and postcontrast images in 3 planes are per formed. High-resolution coronal and sagittal imaging performed through the pituitary region with and without intravenous gadolinium. Pituitary gland is normal size. There is a very vague area within the RIGHT sella turcica measuring 3 x 4 mm which could be a very small pituitary microadenoma. There are no prior studies for comparison or prior report to review. There is no displacement of the infundibulum or optic chiasm. The visuali zed pituitary gland is normal caliber. No soft tissue mass encasing the carotid arteries. No diffusion abnormality. No significant volume loss or atrophy. No prior infarct or ischemic disease . Single focus of increased T2 signal in the posterior RIGHT frontal lobe. Normal hippocampal formati ons. Normal ventricles. No inferior displacement of cerebellar tonsils. No enhancing masses. No vascular malformations. Small caliber, hypoplastic LEFT transverse sinus. MR/MR pituitary wo/w con* [id number] IMPRESSION: 1. Very vague 3 x 4 mm area of decreased enhancement in the RIGHT pituitary. T his could represent a very small pituitary microadenoma. No prior studies are a vailable or report available for comparison purposes. 2. No prior infarct or hemorrhage. 3. Normal ventricles.
[2024-07-26] MEDS: gadobenate dimeglumine 20 mL vial IV (12:44)
== END 2024-07-26 10:57 | disposition home or self-care (01) ==
LOC: RAD 10:57
PROVIDERS: PCP Family Medicine; Visit Provider Internal Medicine
DX: D35.2 Benign neoplasm of pituitary gland (principal)
CPT/HCPCS: 70553

== ENCOUNTER 2024-07-30 07:54 | Outpatient (CLI) | payer MEDICARE, MEDICAID, SELFPAY ==
--- NOTE | 2024-07-30 08:00 | US_ITS ---
WS: [id number] THYROID ULTRASOUND HISTORY: abnormal thyroid exam COMPARISON: None available. Status post thyroidectomy. No mass is noted in the thyroid bed. No residual thyroid tissue. No cervical chain lymph nodes. US/US thyroid [id number] IMPRESSION: Complete thyroidectomy. No residual soft tissue mass identified or adenopathy.
== END 2024-07-30 07:55 | disposition home or self-care (01) ==
LOC: RAD 07:55
PROVIDERS: PCP Family Medicine; Visit Provider Internal Medicine
DX: R94.6 Abnormal results of thyroid function studies (principal); Z96.642 Presence of left artificial hip joint
CPT/HCPCS: 76536

== ENCOUNTER → 2024-12-17 11:52 | Outpatient (BNVA) | payer MEDICARE, MEDICAID, SELFPAY | PROVIDERS: PCP Family Medicine; Visit Provider Internal Medicine Rheumatology | DX: M19.90 Unspecified osteoarthritis, unspecified site (principal); Z79.899 Other long term (current) drug therapy; R76.8 Other specified abnormal immunological findings in serum; M06.041 Rheumatoid arthritis without rheumatoid factor, right hand; M06.042 Rheumatoid arthritis without rheumatoid factor, left hand | CPT/HCPCS: 36415; 80076; 82306; 82565; 84439; 84443; 85025; 85651; 86140; 99214 ==

== ENCOUNTER → 2024-12-23 11:01 | Outpatient (BNVA) | payer MEDICARE, MEDICAID, SELFPAY | PROVIDERS: PCP Family Medicine; Visit Provider Internal Medicine | DX: E07.9 Disorder of thyroid, unspecified (principal); E03.9 Hypothyroidism, unspecified; D35.2 Benign neoplasm of pituitary gland; E55.9 Vitamin D deficiency, unspecified; M54.2 Cervicalgia; Z98.84 Bariatric surgery status; R51.9 Headache, unspecified | CPT/HCPCS: 99214 ==

== ENCOUNTER 2025-02-11 08:52 | Outpatient (CLI) | payer MEDICARE, MEDICAID, SELFPAY ==
[2025-02-11 10:00] LABS: Free T4 Free Thyroxine 1.67 ng/dL (0.82-1.77); Thyroid Stimulating Hormone 0.05 uIU/mL (0.27-4.20)
== END 2025-02-11 08:53 | disposition home or self-care (01) ==
PROVIDERS: PCP Family Medicine; Visit Provider Internal Medicine
DX: E07.9 Disorder of thyroid, unspecified (principal)
CPT/HCPCS: 36415; 84439; 84443

== ENCOUNTER → 2025-04-08 12:54 | Outpatient (BNVA) | payer MEDICARE, MEDICAID, SELFPAY | PROVIDERS: PCP Family Medicine; Visit Provider Internal Medicine Rheumatology | DX: M19.90 Unspecified osteoarthritis, unspecified site (principal); Z79.899 Other long term (current) drug therapy; R76.8 Other specified abnormal immunological findings in serum; M06.041 Rheumatoid arthritis without rheumatoid factor, right hand; M06.042 Rheumatoid arthritis without rheumatoid factor, left hand | CPT/HCPCS: 36415; 80076; 82565; 85025; 85651; 86140; 86480; 99214 ==

== ENCOUNTER 2025-05-09 14:29 | Outpatient (CLI) | payer MEDICARE, MEDICAID, SELFPAY ==
[2025-05-09 15:16] LABS: Free T4 Free Thyroxine 0.58 ng/dL (0.82-1.77); Thyroid Stimulating Hormone 2.21 uIU/mL (0.27-4.20)
== END 2025-05-09 14:30 | disposition home or self-care (01) ==
LOC: LAB 14:32
PROVIDERS: PCP Family Medicine; Visit Provider Internal Medicine
DX: E06.3 Autoimmune thyroiditis (principal); E03.8 Other specified hypothyroidism
CPT/HCPCS: 36415; 84439; 84443

== ENCOUNTER 2025-05-20 09:55 | Outpatient (CLI) | payer MEDICARE, MEDICAID, SELFPAY ==
[2025-05-20 11:05] LABS: Free T4 Free Thyroxine 1.38 ng/dL (0.82-1.77); Thyroid Stimulating Hormone 5.77 uIU/mL (0.27-4.20)
== END 2025-05-20 09:56 | disposition home or self-care (01) ==
LOC: LAB 09:57
PROVIDERS: PCP Family Medicine; Visit Provider Internal Medicine
DX: E06.3 Autoimmune thyroiditis (principal); E03.8 Other specified hypothyroidism
CPT/HCPCS: 36415; 84439; 84443

== ENCOUNTER → 2025-05-22 09:47 | Outpatient (BNVA) | payer MEDICARE, MEDICAID, SELFPAY | PROVIDERS: PCP Family Medicine; Visit Provider Internal Medicine | DX: D35.2 Benign neoplasm of pituitary gland (principal); E07.9 Disorder of thyroid, unspecified; E03.9 Hypothyroidism, unspecified; E55.9 Vitamin D deficiency, unspecified; M54.2 Cervicalgia; Z98.84 Bariatric surgery status; R51.9 Headache, unspecified | CPT/HCPCS: 99214 ==

== ENCOUNTER 2025-07-04 11:24 | Outpatient (CLI) | payer MEDICARE, MEDICAID, SELFPAY ==
--- NOTE | 2025-07-04 11:45 | MR_ITS ---
WS: [id number] MRI HEAD Without and with Gadolinium Enhancement with Pituitary Protocol. TECHNIQUE: Sagittal T1, T2 axial, T2 axial FLAIR, axial susceptibility weighted imaging, axial diffusion weighted images, and coronal T2 images were obtained. Pre and post-T1 axial and post T1 coronal images. ADC and FSPGR images. Pituitary protocol CLINICAL INFORMATION: Pituitary Adenoma COMPARISON: 2023 FINDINGS: Normal optic chiasm and pituitary infundibulum. Slightly patchy enhancement in the pituitary although no visualized lesions today. Previously described hypoenhancing lesion no longer visualized. No evidence of microadenoma on the dynamic imaging. No pituitary lesions visualized today. No evidence of restricted diffusion to suggest acute ischemia. Single focus of T2 signal normality in the RIGHT posterior frontal white matter unchanged. Normal posterior fossa. Normal vascular flow voids at the skull base. No extra- axial fluid collections. Paranasal sinuses and mastoid air cells are well aerated. No hemosiderin. MR/MR pituitary wo/w con* [id number] IMPRESSION: 1. Previously described hypoenhancing lesion no longer visualized. No evidenc e of microadenoma on the dynamic imaging today. 2. No other significant interval changes.
[2025-07-04] MEDS: gadobenate dimeglumine 20 mL vial IV (12:20)
== END 2025-07-04 11:25 | disposition home or self-care (01) ==
LOC: RAD 11:27
PROVIDERS: PCP Family Medicine; Visit Provider Internal Medicine
DX: D35.2 Benign neoplasm of pituitary gland (principal)
CPT/HCPCS: 70553

== ENCOUNTER 2025-07-15 09:46 | Outpatient (CLI) | payer MEDICARE, MEDICAID, SELFPAY ==
[2025-07-15 11:14] LABS: Free T4 Free Thyroxine 1.66 ng/dL (0.82-1.77); Thyroid Stimulating Hormone 0.02 uIU/mL (0.27-4.20)
== END 2025-07-15 09:47 | disposition home or self-care (01) ==
LOC: LAB 09:49
PROVIDERS: PCP Family Medicine; Visit Provider Internal Medicine
DX: D35.2 Benign neoplasm of pituitary gland (principal); E07.9 Disorder of thyroid, unspecified
CPT/HCPCS: 36415; 82533; 84146; 84305; 84439; 84443

== ENCOUNTER → 2025-07-24 13:00 | Outpatient (BNVA) | payer MEDICARE, MEDICAID, SELFPAY | PROVIDERS: PCP Family Medicine; Visit Provider Internal Medicine Endocrinology, Diabetes & Metabolism | DX: E07.9 Disorder of thyroid, unspecified (principal); E03.9 Hypothyroidism, unspecified; D35.2 Benign neoplasm of pituitary gland; E55.9 Vitamin D deficiency, unspecified; M54.2 Cervicalgia; Z98.84 Bariatric surgery status; E66.9 Obesity, unspecified; R51.9 Headache, unspecified; Z98.890 Other specified postprocedural states | CPT/HCPCS: 99214 ==

== ENCOUNTER → 2025-08-26 14:06 | Outpatient (BNVA) | payer MEDICARE, MEDICAID, SELFPAY | PROVIDERS: PCP Family Medicine; Visit Provider Internal Medicine Rheumatology | DX: M06.00 Rheumatoid arthritis without rheumatoid factor, unspecified site (principal); M06.041 Rheumatoid arthritis without rheumatoid factor, right hand; M06.042 Rheumatoid arthritis without rheumatoid factor, left hand; Z79.899 Other long term (current) drug therapy; R76.89 Other specified abnormal immunological findings in serum; M76.61 Achilles tendinitis, right leg; M76.62 Achilles tendinitis, left leg | CPT/HCPCS: 36415; 80076; 82306; 82565; 85025; 85651; 86140; 99214 ==

== ENCOUNTER 2025-09-02 09:03 | Outpatient (CLI) | payer MEDICARE, MEDICAID, SELFPAY ==
[2025-09-02 10:53] LABS: Free T4 Free Thyroxine 1.69 ng/dL (0.82-1.77); Thyroid Stimulating Hormone 0.07 uIU/mL (0.27-4.20)
== END 2025-09-02 09:04 | disposition home or self-care (01) ==
LOC: LAB 09:07
PROVIDERS: PCP Family Medicine; Visit Provider Internal Medicine Endocrinology, Diabetes & Metabolism
DX: R51.9 Headache, unspecified (principal); Z98.84 Bariatric surgery status; M54.2 Cervicalgia; E55.9 Vitamin D deficiency, unspecified; D35.2 Benign neoplasm of pituitary gland; E03.9 Hypothyroidism, unspecified; E07.9 Disorder of thyroid, unspecified
CPT/HCPCS: 36415; 82533; 84439; 84443

== ENCOUNTER 2025-09-22 08:01 | Oncology outpatient (recurring) (ONCR) | payer MEDICARE, MEDICAID, SELFPAY ==
[2025-09-22 08:23] VITALS: BP 102/68; PULSE 66; RESP 18; TEMP 37; O2SAT 97
[2025-09-22] MEDS: cosyntropin 0.25 mg SDV IVP (08:41)
[2025-09-22 09:23] LABS: Cosyntropin Baseline 5.85 mcg/dL
[2025-09-22 09:40] VITALS: BP 122/78; PULSE 78; RESP 17; TEMP 36.6; O2SAT 96
[2025-09-22 10:08] LABS: Cosyntropin 30 Minute 16.56 mcg/dL
[2025-09-22 10:35] LABS: Cosyntropin 1 Hour 19.06 mcg/dL
== END 2025-10-01 23:59 | disposition home or self-care (01) ==
PROVIDERS: Internal Medicine Endocrinology, Diabetes & Metabolism; PCP Family Medicine; Visit Provider Family Medicine
DX: Z53.9 Procedure and treatment not carried out, unspecified reason; R51.9 Headache, unspecified; Z98.84 Bariatric surgery status; M54.2 Cervicalgia; E55.9 Vitamin D deficiency, unspecified; D35.2 Benign neoplasm of pituitary gland; E03.8 Other specified hypothyroidism; E06.3 Autoimmune thyroiditis; Z79.899 Other long term (current) drug therapy
CPT/HCPCS: 36415; 82533; 96374; J0834